=== PATIENT | female | born 1980 | race Caucasian/White ===

== ENCOUNTER 2017-08-18 18:30 | Emergency (ER) | payer OTHER ==
[~2017-08-18] VITALS: Ht 162.6 cm; Wt 47.2 kg
[~2017-08-18 18:30] MED LIST: CIPR500T4 PO; FLAG500T PO; IBUP600 PO; LORTA5 PO; PERC5TAB12 PO; ZOFR4TAB3 SL
[2017-08-18 18:36] VITALS: BP 140/67; PULSE 95; RESP 16; TEMP 98; O2SAT 98
[2017-08-18] MEDS ORDERED: LORA-474 PO (18:43)
[2017-08-18] MEDS ORDERED: TRAM50TA PO (19:45)
[2017-08-18] MEDS ORDERED: PERI0.126 SWISH-SPIT (19:45)
[2017-08-18] MEDS ORDERED: PENI500T PO (19:45)
--- NOTE | 2017-08-18 19:45 | PD ---
HPI Chief Complaint: Oral / Dental Pain or Problem Time Seen by Provider: 19:37 Travel History International Travel<30 days: No Contact w/Intl Traveler<30days: No Traveled to known affect area: No History of Present Illness HPI The patient is a 37-year-old female who presents to emergency department for left upper tooth pain. The patient has a history affected area. Her dentist was unable to get her into the office earlier today, therefore, she presents for increasing pain to the affected area. She is also worried about developing an abscess of the affected tooth. Patient denies any fever. Symptoms are mild to moderate. The patient has a history of gastric ulcers and cannot take nonsteroidal anti-inflammatories per her report. PFSH Past Medical History Arthritis: No Asthma: Yes Autoimmune Disease: No Blood Disorders: No Anxiety: No Depression: No Heart Rhythm Problems: No Cancer: Yes (stage 4 cervical cancer) Cardiovascular Problems: No High Cholesterol: No Chemotherapy: No Chest Pain: No Congestive Heart Failure: No COPD: No Cerebrovascular Accident: No Diabetes: No Diminished Hearing: No Endocrine: No Gastrointestinal Disorders: No Glaucoma: No Genitourinary: No Headaches: No Hepatitis: No Hiatal Hernia: No Hypertension: No Immune Disorder: No Kidney Stones: No Medical other: No Musculoskeletal: No Neurologic: No Psychiatric: No Reproductive: Yes Respiratory: No Migraines: No Myocardial Infarction: No Radiation Therapy: No Renal Failure: No Seizures: No Sickle Cell Disease: No Sleep Apnea: No Thyroid Disease: No Tetanus Vaccination: Unknown ?: Not : 2 Para: 2 Ovarian Cysts: Yes Dilation and Curettage (D&C): Yes Past Surgical History Abdominal Surgery: No AICD: No Arteriovenous Shunt: No Cardiac Surgery: No Ear Surgery: No Endocrine Surgery: No Eye Surgery: No Genitourinary Surgery: No Gynecologic Surgery: Yes (LEEP X4, ABLATION X 3,OVARIAN CYST REMOVED) Hysterectomy: Yes Insulin Pump: No Joint Replacement: No Neurologic Surgery: No Oral Surgery: No Pacemaker: No Thoracic Surgery: No Other Surgery: Yes (EMDOMETRIOSIS,LEEP PROCEDURE 2004-, 2014.) Social History Alcohol Use: Yes (OCC.) Tobacco Use: Yes (1 PPD) Substance Use: No Allergies-Medications (Allergen,Severity, Reaction): Coded Allergies: codeine (Unverified Allergy, Intermediate, RASH, 08/18/17) acetaminophen (Unverified Allergy, Mild, headache, 08/18/17) morphine (Unverified Allergy, Mild, "jump out of skin", 08/18/17) propoxyphene (Unverified Allergy, Mild, headache, 08/18/17) Reported Meds & Prescriptions Reported Meds & Active Scripts Active Reported Ativan (Lorazepam) 1 Mg Tab 1 Mg PO Q4H PRN Review of Systems Except as stated in HPI: all other systems reviewed are Neg General / Constitutional: No: Fever HENT: Positive: Dental Difficulties Gastrointestinal: Positive: Other (History of gastric ulcers, therefore, states she cannot take nonsteroidal anti-inflammatories), No: Nausea, Vomiting Physical Exam Narrative GENERAL: Awake, alert, pleasant 37-year-old female who appears her stated age and is in no acute respiratory distress. SKIN: Focused skin assessment warm/dry. HEAD: Atraumatic. Normocephalic. EYES: Pupils equal and round. No scleral icterus. No injection or drainage. ENT: Inspection of the dentition does reveal that tooth #11 has no visible crown , sharp and to a point. No significant swelling around the gingiva. Mild tenderness to palpation. NECK: Trachea midline. No JVD. MUSCULOSKELETAL: No obvious deformities. No clubbing. No cyanosis. No edema. NEUROLOGICAL: Awake and alert. No obvious cranial nerve deficits. Motor grossly within normal limits. Normal speech. PSYCHIATRIC: Appropriate mood and affect; insight and judgment normal. Data Data Last Documented VS Vital Signs Date Time Temp Pulse Resp B/P (MAP) Pulse Ox O2 Delivery O2 Flow Rate FiO2 08/18/17 18:36 98.0 95 16 140/67 (91) 98 MDM Medical Decision Making Medical Screen Exam Complete: Yes Emergency Medical Condition: Yes Medical Record Reviewed: Yes Differential Diagnosis Differential diagnosis includes ANUG, gingivitis, odontalgia, pericoronitis, dental infection. Narrative Course The patient will be placed on Pen-Vee K, Peridex, and tramadol. She is advised to follow-up with her dentist. Return if symptoms worsen or progress. Diagnosis Primary Impression: Odontalgia Patient Instructions: General Instructions Additional Instructions: Medications as directed. Follow-up with your dentist. Return if symptoms worsen or progress. Med/Other Pt SpecificInfo: Prescription(s) given Scripts Tramadol (Tramadol) 50 Mg Tab 50 MG PO Q6H Y for PAIN, #12 TAB 0 Refills Prov: Angel Avelar MD 08/18/17 Chlorhexidine Gluconate (Mouth) Liq (Peridex Liq) 0.12% Soln 15 ML SWISH-SPIT BID, #473 ML 0 Refills Prov: Angel Avelar MD 08/18/17 Penicillin V Potassium (Penicillin V Potassium) 500 Mg Tab 500 MG PO Q6H for Infection for 10 Days, #40 TAB 0 Refills Prov: Angel Avelar MD 08/18/17 Disposition: 01 DISCHARGE HOME Condition: Stable Angel Avelar MD Aug 18, 2017 19:45
== END 2017-08-18 19:53 | disposition home or self-care (01) ==
LOC: PHEFT 18:30
DX: K08.89 Other specified disorders of teeth and supporting structures (principal); J45.909 Unspecified asthma, uncomplicated; Z85.41 Personal history of malignant neoplasm of cervix uteri; F17.200 Nicotine dependence, unspecified, uncomplicated
CPT/HCPCS: 99283